=== PATIENT | female | born 1940 | race Caucasian/White ===

== ENCOUNTER 2021-02-10 18:31 | Inpatient (IN) | payer MEDICARE, OTHER ==
[~2021-02-10] VITALS: Ht 149.9 cm; Wt 101.5 kg
[~2021-02-10 18:31] MED LIST: Antivert25 MG PO; CALCIUM; CHOL10002; DESL5 PO; LEVSOD150 PO; MAGNESIUM; OMEP20ER PO; Omega-31000 MG; Prozac20 MG PO; Vitamin C100 M1; Vitamin E100 UNIT; ZINC
[2021-02-10 19:06] LABS: BASOPHILS ABSOLUTE AUTO 0.11 K/mm3 (0.00-0.23); BASOPHILS PERCENT AUTO 1 % (0-2); EOSINOPHILS ABSOLUTE AUTO 0.56 K/mm3 (0.00-0.68); EOSINOPHILS PERCENT AUTO 7 % (0-6); Hematocrit 41.8 % (33.0-51.0); Hemoglobin 13.2 g/dL (11.5-16.0); IMMATURE GRAN ABSOLUTE AUTO 0.02 K/mm3 (0.00-0.10); IMMATURE GRAN PERCENT AUTO 0 % (0-1); LYMPHOCYTES ABSOLUTE AUTO 2.28 K/mm3 (0.84-5.20); LYMPHOCYTES PERCENT AUTO 29 % (21-46); MONOCYTES ABSOLUTE AUTO 0.81 K/mm3 (0.16-1.47); MONOCYTES PERCENT AUTO 10 % (4-13); Mean Corpuscular HGB 28.9 pg (26.0-34.0); Mean Corpuscular HGB Conc 31.6 g/dL (31.5-36.5); Mean Corpuscular Volume 92 fL (80-100); Mean Platelet Volume 10.1 fL (9.1-12.4); NEUTROPHILS ABSOLUTE AUTO 4.04 K/mm3 (1.96-9.15); NEUTROPHILS PERCENT AUTO 52 % (41-73); Platelet Count 298 K/mm3 (150-400); RDW Coefficient Variation 13.5 % (11.7-14.2); RDW Standard Deviation 45.3 fL (35.1-46.3); Red Blood Cell Count 4.57 M/mm3 (3.80-5.20); White Blood Cell Count 7.82 K/mm3 (4.00-11.30)
[2021-02-10 19:30] LABS: International Normalized Ratio 0.96; Prothrombin Time Results 10.1 Sec (9.7-11.5)
[2021-02-10 19:39] LABS: Albumin, Blood 3.2 g/dL (3.4-5.0); Albumin/Globulin Ratio 0.8 (0.8-1.8); Bilirubin, Total 0.5 mg/dL (0.1-1.0); Bun/Creatinine Ratio 12.1 (12.0-20.0); Calcium, Blood 9.1 mg/dL (8.5-10.1); Creatinine, Blood 0.99 mg/dL (0.40-1.00); Globulin, Blood 4.1 g/dL (2.2-4.0); Potassium, Blood 4.1 mmol/L (3.5-5.5); Total Protein, Blood 7.3 g/dL (6.4-8.2)
[2021-02-10] MEDS ORDERED: PRAVASTATIN SOD20 MG PO (20:53)
[2021-02-10 21:12] LABS: Source, Urine Clean Catch
[2021-02-10 21:15] LABS: Bilirubin, Urine Neg (Neg); Blood, Urine 2+ (Neg); Glucose Qualitative, Urine Neg (Neg); Ketones, Urine Neg (Neg); Leukocyte Esterase, Urine 2+ (Neg); Nitrite, Urine Neg (Neg); Protein, Urine 1+ (Neg); Specific Gravity, Urine 1.005 (1.003-1.022); Urobilinogen, Urine NORM (Normal); pH, Urine 6.5 (5.0-8.0)
[2021-02-10 21:22] LABS: Appearance, Urine Hazy (Clear); Color, Urine Yellow (P-Yellow)
[2021-02-10 21:24] LABS: Bacteria Many /hpf; Squamous Epithelial Cells Few /hpf (Few)
[2021-02-10 21:25] LABS: Amorphous Light (0-Heavy)
[2021-02-11 04:45] LABS: BASOPHILS PERCENT AUTO 1 % (0-2); EOSINOPHILS ABSOLUTE AUTO 0.54 K/mm3 (0.00-0.68); EOSINOPHILS PERCENT AUTO 7 % (0-6); Hematocrit 38.6 % (33.0-51.0); Hemoglobin 12.1 g/dL (11.5-16.0); IMMATURE GRAN ABSOLUTE AUTO 0.01 K/mm3 (0.00-0.10); IMMATURE GRAN PERCENT AUTO 0 % (0-1); LYMPHOCYTES ABSOLUTE AUTO 2.32 K/mm3 (0.84-5.20); LYMPHOCYTES PERCENT AUTO 31 % (21-46); MONOCYTES ABSOLUTE AUTO 0.71 K/mm3 (0.16-1.47); MONOCYTES PERCENT AUTO 9 % (4-13); Mean Corpuscular HGB 28.4 pg (26.0-34.0); Mean Corpuscular HGB Conc 31.3 g/dL (31.5-36.5); Mean Corpuscular Volume 91 fL (80-100); Mean Platelet Volume 9.9 fL (9.1-12.4); NEUTROPHILS ABSOLUTE AUTO 3.85 K/mm3 (1.96-9.15); NEUTROPHILS PERCENT AUTO 51 % (41-73); Platelet Count 262 K/mm3 (150-400); RDW Coefficient Variation 13.5 % (11.7-14.2); RDW Standard Deviation 44.9 fL (35.1-46.3); Red Blood Cell Count 4.26 M/mm3 (3.80-5.20); White Blood Cell Count 7.53 K/mm3 (4.00-11.30)
[2021-02-11 05:10] LABS: Anion Gap 6 mmol/L (6-16); Blood Urea Nitrogen 11 mg/dL (8-24); Bun/Creatinine Ratio 11.2 (12.0-20.0); CHOL/HDL RATIO 2.4; CO2, Blood 28 mmol/L (21-32); Calcium, Blood 9.1 mg/dL (8.5-10.1); Chloride, Blood 105 mmol/L (98-108); Cholesterol 164 mg/dL (50-200); Creatinine, Blood 0.98 mg/dL (0.40-1.00); Glomerular Filtration Rate 55 (60-); Glucose, Blood 107 mg/dL (70-99); HDL Cholesterol 67 mg/dL (>39); LDL/HDL RATIO 1.1; Low Density Lipoprotein Chol 75 mg/dL (0-110); Potassium, Blood 3.9 mmol/L (3.5-5.5); Sodium, Blood 139 mmol/L (136-145); Triglycerides 112 mg/dL (30-160); Very Low Density Lipoprot Chol 22 mg/dL (6-32)
--- NOTE | 2021-02-11 05:39 | NUR ---
PATIENT IS AN ADMIT FROM THE ER, ALERT AND ORIENTED X3. 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 PATIENT DENIES PAIN, SOB, CHEST PAIN, PALPITATION, N/V. PATIENT STATED SHE DROVE TO HER DAUGHTERS HOUSE AND FELL SHE WAS GETTING OUT OF THE CAR. PATIENT REPORTS SHE LEAVES ALONE. PATIENT IS FULL CODE AND WILL REQUIRE ASSIST OF TWO TO THE BEDSIDE COMMODE UNTIL EVALUATED BY PT. PATIENT HAS UTI AND WAS TREATED WITH ROCEPHINE AT THE ER. PATIENT IS ON RA AND AN IV ACCESS ON HER RIGHT HAND. PATIENT REPORTS LAST BM WAS YESTERDAY. PATIENT'S LUNG SOUDS ARE CLEAR TO AUSCULTATION, BS+[id number]. PATIENT REPORTS SHE WEARS GLASSES AND THEY ARE WITH HER. PATIENT REPORTS HEARING LOSS ON HER R EAR. PATIENT'S VITAL SIGNS ARE WNL. WILL CONTINUE TO MONITOR.
--- NOTE | 2021-02-11 18:46 | NUR ---
SUMMARY- PT ALERT AND ORIENTED TO SELF AND CIRCUMATANCE, KNOWS THE PRESIDENT AND THE EXACT DATE. MILDLY SLURRED SPEECH AND L WEAKNESS. WORKED WITH PT/OT TODAY, WAS ABLE TO STAND AT THE BEDSIDE WITH ASSIST. SPEECH CHANGED DIET TO PUREE. PT TOLERATED 20%LUNCH AND 40% DINNER. FEEDS SELF, TOLERATING FLUIDS. USES THE BEDPAN TO VOID AND ALSO INCONT RELATED TO URGENCY. MRI ORDERED LATER THIS AFTERNOON AND SUBSTATION MANAGER WENT HOME BEFORE MRI COMPLETED, WILL PERRORM TOMORROW. DAUGHTER AT BEDSIDE VISITING, GIVEN UPDATE, WANTS F/U REPORT AFTER MRI.
--- NOTE | 2021-02-12 05:35 | NUR ---
PATIENT A/O X3. PATIENT DENIES PAIN, SOB, N/V, CHEST PAIN OR HEADACH. PATIENT WAS INCONTINENT OF URINE X2. PATIENT CONTINUE WITH LEFT SIDED WEAKNESS, MILD SLURRED SPEECH. PATIENT HAS UTI AND CONTINUES ON BACTRIM ORAL. PATIENT TOOK HER PILLS WHOLE WITH NO ISSUE WILL CONTINUE TO MONITOR.
[2021-02-12] MEDS ORDERED: Aspir 8181 MG PO (11:26)
[2021-02-12] MEDS ORDERED: CLOP75 PO (11:27)
[2021-02-12] MEDS ORDERED: ATOR40TA PO (11:27)
[2021-02-12 12:27] LABS: SARS-Cov-2 (COVID-19) PCR, MMC NEGATIVE (NEGATIVE)
--- NOTE | 2021-02-12 14:34 | NUR ---
PT TRANSFERRED TO [facility] WITH AMBULANCE [place] VIA [facility] ePrint [phone]. REPORT CALLED TO CLINT Fei [phone]. PT SENT HOME WITH BELONGINGS. HER DAUGHTER IS HERE WITH PT DURING TX AND MEETING MOM AT FACILITY. IV DC'D. SENT WITH YELLOW PACKET.
== END 2021-02-12 14:19 | DRG 65 ==
LOC: ER 18:31 → MEDS 22:17 → SURS 22:17 → MEDS 23:50
PROVIDERS: Emergency Medicine; Family Medicine; Internal Medicine; ADMIT Internal Medicine
DX: I63.81 Other cerebral infarction due to occlusion or stenosis of small artery (principal); G81.94 Hemiplegia, unspecified affecting left nondominant side; Z68.41 Body mass index [BMI] 40.0-44.9, adult; Z20.822 Contact with and (suspected) exposure to COVID-19; R47.81 Slurred speech; F32.A Depression, unspecified; E03.9 Hypothyroidism, unspecified; R82.71 Bacteriuria; E78.5 Hyperlipidemia, unspecified; K21.9 Gastro-esophageal reflux disease without esophagitis; E66.9 Obesity, unspecified; Z88.5 Allergy status to narcotic agent; Z79.899 Other long term (current) drug therapy; Z87.891 Personal history of nicotine dependence
CPT/HCPCS: 36415; 70450; 70496; 70498; 70551; 71045; 80048; 80053; 80061; 81001; 82947; 83036; 85025; 85610; 85730; 87086; 92526; 92610; 93005; 93010; 93246; 93306; 97110; 97162; 97166; 97530; 99285-25; A9270; J1650; Q9967; U0004

== ENCOUNTER 2025-04-04 15:29 | Emergency (ER) | payer MEDICARE, OTHER ==
[~2025-04-04] VITALS: Ht 152.4 cm; Wt 74.8 kg
[~2025-04-04 15:29] MED LIST changes: +ATOR40TA PO; +Aspir 8181 MG PO; +CLOP75 PO; +PRAVASTATIN SOD20 MG PO
[2025-04-04 16:10] LABS: BASOPHILS ABSOLUTE AUTO 0.08 K/mm3 (0.00-0.23); BASOPHILS PERCENT AUTO 2 % (0-2); EOSINOPHILS ABSOLUTE AUTO 0.42 K/mm3 (0.00-0.68); EOSINOPHILS PERCENT AUTO 8 % (0-6); Hematocrit 42.2 % (33.0-51.0); Hemoglobin 13.5 g/dL (11.5-16.0); IMMATURE GRAN ABSOLUTE AUTO 0.03 K/mm3 (0.00-0.10); IMMATURE GRAN PERCENT AUTO 1 % (0-1); LYMPHOCYTES ABSOLUTE AUTO 0.90 K/mm3 (0.84-5.20); LYMPHOCYTES PERCENT AUTO 17 % (21-46); MONOCYTES ABSOLUTE AUTO 0.36 K/mm3 (0.16-1.47); MONOCYTES PERCENT AUTO 7 % (4-13); Mean Corpuscular HGB Conc 32.0 g/dL (31.5-36.5); Mean Corpuscular Volume 95 fL (80-100); NEUTROPHILS ABSOLUTE AUTO 3.39 K/mm3 (1.96-9.15); NEUTROPHILS PERCENT AUTO 66 % (41-73); NRBC ABSOLUTE 0.00 K/mm3 (0.00-0.02); NRBC Auto 0.0 /100 WBC (0.0-0.2); RDW Coefficient Variation 13.6 % (11.7-14.2); RDW Standard Deviation 47.4 fL (35.1-46.3)
[2025-04-04 16:25] LABS: Alanine Aminotransfer (ALT/SGP 18.0 U/L (12-78); Albumin, Blood 3.1 g/dL (3.4-5.0); Albumin/Globulin Ratio 1.1 (0.8-1.8); Anion Gap 9.0 mmol/L (3-11); Aspartate Aminotrans (AST/SGOT 29.0 U/L (12-37); Bilirubin, Total 1.0 mg/dL (0.1-1.0); Blood Urea Nitrogen 10.0 mg/dL (8-24); CO2, Blood 23.0 mmol/L (21-32); Calcium, Blood 8.9 mg/dL (8.5-10.1); Chloride, Blood 109.0 mmol/L (98-108); Creatinine, Blood 1.41 mg/dL (0.40-1.00); Globulin, Blood 2.9 g/dL (2.2-4.0); Glucose, Blood 114.0 mg/dL (70-99); Potassium, Blood 4.3 mmol/L (3.5-5.5); Sodium, Blood 137.0 mmol/L (136-145); Total Protein, Blood 6.0 g/dL (6.4-8.2)
[2025-04-04 16:39] LABS: Platelet Count 205 K/mm3 (150-400)
[2025-04-04 21:30] VITALS: BP 193/54
== END 2025-04-04 21:40 | disposition home or self-care (01) ==
LOC: ER 15:29
PROVIDERS: Emergency Medicine
DX: R55 Syncope and collapse (principal); R10.32 Left lower quadrant pain; R79.89 Other specified abnormal findings of blood chemistry; Z87.891 Personal history of nicotine dependence
CPT/HCPCS: 74177; 80053; 83605; 83690; 84484; 85025; 93005; 93010; 99284-25; Q9967